=== PATIENT | female | born 1980 | race African-American/Black ===

== ENCOUNTER 2017-03-25 20:51 | Observation (INO) | payer OTHER ==
[2017-03-25 20:00] VITALS: BP 149/92; PULSE 68; PULSE 70; RESP 20; TEMP 97; O2SAT 100
[~2017-03-25 20:51] MED LIST: IBUP-232 PO
[2017-03-25] MEDS ORDERED: SODIUM CHLORIDE 0.9% FLUSH 10 ML FLUSH IV FLUSH PRN (23:00)
[2017-03-25] MEDS ORDERED: ONDANSETRON HCL 4 MG/2 ML VIAL IV PUSH PRN (23:00)
[2017-03-25] MEDS ORDERED: NITROGLYCERIN 0.4 MG SL 25 TABS/BTL SL PRN (23:00)
[2017-03-25 23:05] VITALS: O2SAT 99
[2017-03-25 23:51] LABS: TROPONIN I LESS THAN 0.02 NG/ML (0.02-0.05)
[2017-03-26] VITALS: BP 122/81; PULSE 74; RESP 18; TEMP 96.5; O2SAT 99
[2017-03-26 04:00] VITALS: BP 141/87; PULSE 54; RESP 18; TEMP 97.1; O2SAT 99
[2017-03-26 06:40] LABS: AUTOMATED NEUTROPHIL # 2.5 TH/MM3 (1.8-7.7); BASOPHIL # 0.1 TH/MM3 (0-0.2); BASOPHIL % 1.9 % (0.0-2.0); EOSINOPHIL # 0.3 TH/MM3 (0-0.4); EOSINOPHIL % 5.3 % (0.0-4.0); HEMOGLOBIN 9.9 GM/DL (11.6-15.3); LYMPH % 39.9 % (9.0-44.0); LYMPHOCYTE # 2.1 TH/MM3 (1.0-4.8); MEAN CELL VOLUME 71.8 FL (80.0-100.0); MEAN CORPUSCULAR HEMOGLOBIN 22.2 PG (27.0-34.0); MEAN PLATELET VOLUME 9.6 FL (7.0-11.0); MONO % 6.2 % (0.0-8.0); MONOCYTE # 0.3 TH/MM3 (0-0.9); NEUT % 46.7 % (16.0-70.0); PLATELET COUNT 291 TH/MM3 (150-450); RED BLOOD COUNT 4.45 MIL/MM3 (4.00-5.30); RED CELL DISTRIBUTION WIDTH 19.6 % (11.6-17.2); WHITE BLOOD COUNT 5.3 TH/MM3 (4.0-11.0)
[2017-03-26 06:57] LABS: BICARBONATE 26.1 MEQ/L (21.0-32.0); CALCIUM 8.6 MG/DL (8.5-10.1)
[2017-03-26 07:01] LABS: CREATININE 0.62 MG/DL (0.50-1.00)
[2017-03-26 07:28] LABS: OVALOCYTES 1+ (NORMAL)
[2017-03-26 07:29] LABS: ROULEAUX PRESENT (NORMAL)
[2017-03-26 08:00] VITALS: BP 146/100; PULSE 73; RESP 16; TEMP 97.6; O2SAT 100
[2017-03-26 08:19] VITALS: PULSE 73
--- NOTE | 2017-03-26 08:23 | HHI.HP ---
[facility] [place] [facility] Primary Care Physician No Primary Care Physician Admission Diagnosis Chest pain Diagnoses: (1) Atypical chest pain Chief Complaint: Chest pain Travel History International Travel<30 Days: No Contact w/Intl Traveler <30 Da: No Traveled to Known Affected Are: No History of Present Illness This is a pleasant 36-year-old female patient with a known medical history of iron deficiency anemia and anxiety who presented to the ED with complaints of chest pain. Patient states that over the past several months since September of last year she has been having complaints of daily chest pain. Patient states that the pain usually occurs in her right axilla and right arm and radiates to the left side of her chest and upper neck and jaw. She characterizes the pain as squeezing and sharp in nature, happens roughly every day, last a few minutes to an hour, states that rest usually relieves the pain. Denies any aggravating factors. Patient does admit to associated nausea, diaphoresis and shortness of breath with the pain, rates the pain a seven out of ten at its worst. Patient does a patient denies ever having this pain before the last several months. Does admit to history of anxiety for which she was on Xanax but does not take anymore because it made her too lethargic. Patient does admit to daily marijuana use for her anxiety. Patient was given nitroglycerin sublingual 1 which relieved the pain in the ED. Patient does admit to any significant family medical history, her father had an AL at the age of forty-two and her paternal aunt also had a heart attack at the age of thirty-seven. Does admit to history of iron deficiency anemia, does not take iron supplements at home. His any recent illness including fever, chills abdominal pain, nausea and vomiting. Review of Systems Constitutional: DENIES: Fever, Chills Endocrine: DENIES: Abnorml menstrual pattern Eyes: DENIES: Blurred vision, Diplopia Respiratory: COMPLAINS OF: Shortness of breath, DENIES: Cough, Sputum production Cardiovascular: COMPLAINS OF: Chest pain, DENIES: Palpitations Gastrointestinal: COMPLAINS OF: Nausea, DENIES: Abdominal pain, Black stools, Bloody stools, Constipation, Diarrhea, Vomiting Musculoskeletal: DENIES: Joint pain Integumentary: DENIES: Abnormal pigmentation Hematologic/lymphatic: DENIES: Bruising Immunologic/allergic: DENIES: Eczema Neurologic: DENIES: Abnormal gait Psychiatric: COMPLAINS OF: Anxiety Except as stated in HPI: all other systems reviewed are Neg Past Family Social History Past Medical History Iron deficiency anemia Anxiety Chronic back pain Past Surgical History Reported Medications Denies any home medications. Allergies: Coded Allergies: morphine (Verified Allergy, Severe, Itching, 03/25/17) Active Ordered Medications Current Medications Medications (Trade) Dose Ordered Sig/Jovita Route Start Time Stop Time Status Last Admin (NS Flush) 2 ml UNSCH PRN IV FLUSH 03/25/17 23:00 (NS Flush) 2 ml BID IV FLUSH 03/26/17 09:00 03/26/17 08:48 (Zofran Inj) 4 mg Q6H PRN IV PUSH 03/25/17 23:00 (Nitrostat Sl) 0.4 mg Q5M PRN SL 03/25/17 23:00 Family History Father had an AL at the age of forty-two. Paternal aunt had an AL at the age of thirty-seven. Social History Admits to drinking socially. Denies any tobacco use. Does admit to daily marijuana use. Denies any cocaine use. Physical Exam Vital Signs Vital Signs Date Time Temp Pulse Resp B/P (MAP) Pulse Ox O2 Delivery O2 Flow Rate FiO2 03/26/17 04:00 97.1 54 18 141/87 (105) 99 03/26/17 00:00 96.5 74 18 122/81 (95) 99 03/25/17 23:05 99 21 03/25/17 20:00 68 03/25/17 20:00 97.0 70 20 149/92 (111) 100 Physical Exam GENERAL: Well-nourished, well-developed patient in NAD. SKIN: Warm and dry. No rash. HEAD: Normocephalic. Atraumatic. EYES: Pupils equal and round. No scleral icterus. No injection or drainage. ENT: No nasal bleeding or discharge. Mucous membranes pink and moist. NECK: Supple. Trachea midline. CARDIOVASCULAR: Regular rate and rhythm. S1, S2 noted. No murmur appreciated. No reproducible chest pain to palpation. RESPIRATORY: No accessory muscle use. Clear to auscultation. Breath sounds equal bilaterally. GASTROINTESTINAL: Abdomen soft, non-tender, nondistended. Normoactive bowel sounds x4. MUSCULOSKELETAL: No obvious deformities. Extremities without clubbing, cyanosis , or edema. NEUROLOGICAL: Awake and alert. No obvious cranial nerve deficits. Motor grossly within normal limits. 5/5 muscle strength in bilateral upper and lower extremities. Normal speech. PSYCHIATRIC: Appropriate mood and affect; insight and judgment normal. Laboratory Laboratory Tests Test 03/25/17 23:10 03/26/17 06:10 Total Creatine Kinase 104 Creatine Kinase MB LESS THAN 0.5 Troponin I LESS THAN 0.02 White Blood Count 5.3 Red Blood Count 4.45 Hemoglobin 9.9 Hematocrit 32.0 Mean Corpuscular Volume 71.8 Mean Corpuscular Hemoglobin 22.2 Mean Corpuscular Hemoglobin Concent 31.0 Red Cell Distribution Width 19.6 Platelet Count 291 Mean Platelet Volume 9.6 Neutrophils (%) (Auto) 46.7 Lymphocytes (%) (Auto) 39.9 Monocytes (%) (Auto) 6.2 Eosinophils (%) (Auto) 5.3 Basophils (%) (Auto) 1.9 Neutrophils # (Auto) 2.5 Lymphocytes # (Auto) 2.1 Monocytes # (Auto) 0.3 Eosinophils # (Auto) 0.3 Basophils # (Auto) 0.1 CBC Comment AUTO DIFF Differential Comment AUTO DIFF CONFIRMED Platelet Estimate NORMAL Platelet Morphology Comment NORMAL Ovalocytes 1+ Rouleau PRESENT Blood Urea Nitrogen 10 Creatinine 0.62 Random Glucose 90 Calcium Level 8.6 Sodium Level 138 Potassium Level 3.4 Chloride Level 106 Carbon Dioxide Level 26.1 Anion Gap 6 Estimat Glomerular Filtration Rate 132 Result Diagram: 03/26/17 0610 03/26/17 06 Septic Shock Reassessment Septic shock perfusion: reassessment completed Caprini VTE Risk Assessment Caprini VTE Risk Assessment: No/Low Risk (score <= 1) Caprini Risk Assessment Model Point Value = 1 Point Value = 2 Point Value = 3 Point Value = 5 Age 41-60 Minor surgery BMI > 25 kg/m2 Swollen legs Varicose veins or History of unexplained or recurrent spontaneous Oral contraceptives or hormone replacement Sepsis (< 1 month) Serious lung disease, including pneumonia (< 1 month) Abnormal pulmonary function Acute myocardial infarction Congestive heart failure (< 1 month) History of inflammatory bowel disease Medical patient at bed rest Age 61-74 Arthroscopic surgery Major open surgery (> 45 min) Laparoscopic surgery (> 45 min) Malignancy Confined to bed (> 72 hours) Immobilizing plaster cast Central venous access Age >= 75 History of VTE Family history of VTE Factor V Leiden Prothrombin [id number] Lupus anticoagulant Anticardiolipin antibodies Elevated serum homocysteine Heparin-induced thrombocytopenia Other congenital or acquired thrombophilia Stroke (< 1 month) Elective arthroplasty Hip, pelvis, or leg fracture Acute spinal cord injury (< 1 month) Prophylaxis Regimen Total Risk Factor Score Risk Level Prophylaxis Regimen 0-1 Low Early ambulation 2 Moderate Order ONE of the following: *Sequential Compression Device (SCD) *Heparin 5000 units SQ BID 3-4 Higher Order ONE of the following medications: *Heparin 5000 units SQ TID *Enoxaparin/Lovenox 40 mg SQ daily (WT < 150 kg, CrCl > 30 mL/min) *Enoxaparin/Lovenox 30 mg SQ daily (WT < 150 kg, CrCl > 10-29 mL/min) *Enoxaparin/Lovenox 30 mg SQ BID (WT < 150 kg, CrCl > 30 mL/min) AND/OR *Sequential Compression Device (SCD) 5 or more Highest Order ONE of the following medications: *Heparin 5000 units SQ TID (Preferred with Epidurals) *Enoxaparin/Lovenox 40 mg SQ daily (WT < 150 kg, CrCl > 30 mL/min) *Enoxaparin/Lovenox 30 mg SQ daily (WT < 150 kg, CrCl > 10-29 mL/min) *Enoxaparin/Lovenox 30 mg SQ BID (WT < 150 kg, CrCl > 30 mL/min) AND *Sequential Compression Device (SCD) Assessment and Plan Problem List: (1) Atypical chest pain ICD Code: R07.89 - Other chest pain Plan: Patient has been admitted to the chest pain center for observation. Serial EKGs and serial troponins have been ordered for ruling out ACS purposes. Troponin 2 negative. Awaiting third enzyme, follow. EKG reviewed showing normal sinus rhythm with controlled heart rate, no ST changes to indicate any ischemia. Chest pain is currently resolved. Chest x-ray reviewed showing no acute disease. Nitroglycerin available for chest pain when necessary. Due to the patient's significant family medical history of AL, patient will undergo a cardiac treadmill stress test to further rule out any ischemia. Patient is stable at this time and agreeable to the plan. (2) Hypokalemia ICD Code: E87.6 - Hypokalemia Plan: Mild hypokalemia, 3.4. Replaced. (3) Iron deficiency anemia ICD Code: D50.9 - Iron deficiency anemia, unspecified Plan: CBC showing iron deficiency anemia. Iron studies and ferritin ordered, pending. Follow. Assessment and Plan Patient underwent treadmill cardiac stress test, images reviewed by on-call char filter operator, Dr. Pierce, showing no ischemia although patient is intermediate risk secondary to chest pain. A nuclear stress test has been ordered. Patient has been updated about results and further treatment plan. Will await nuclear imaging results. Further hospitalization to be determined. Patient underwent a cardiac nuclear stress test. Results were reviewed showing EF 64% with intact wall motion and thickening without hypokinetic or dyskinetic segments. Unremarkable myocardial perfusion scan. Patient updated about results. Encouraged to follow up with PCP for NIYAH and given iron and vitamin C prescriptions. Likely symptoms are related to her disease and noncompliance with iron supplementation. Patient is agreeable to the plan. Sona Patel Mar 26, 2017 08:23
[2017-03-26 08:35] LABS: TROPONIN I LESS THAN 0.02 NG/ML (0.02-0.05)
[2017-03-26] MEDS ORDERED: SODIUM CHLORIDE 0.9% FLUSH 10 ML FLUSH IV FLUSH SCH (09:00)
[2017-03-26] MEDS ORDERED: POTASSIUM CHLORIDE 10 MEQ CONTROLLED RELEASE TAB PO ONE (09:15)
[2017-03-26 10:14] LABS: TROPONIN I LESS THAN 0.02 NG/ML (0.02-0.05)
[2017-03-26 11:08] LABS: % SATURATION IRON PROFILE 9.9 % (20-50); CHOLESTEROL 184 MG/DL (120-200); IRON (FE) 44 MCG/DL (50-170); TOTAL IRON BINDING CAPACITY 444 MCG/DL (250-450)
[2017-03-26 11:11] LABS: CHOLESTEROL/ HDL RATIO 2.33 RATIO; FERRITIN 5 NG/ML (8-252); HDL CHOLESTEROL 78.8 MG/DL (40.0-60.0); LDL CHOLESTEROL 85 MG/DL (0-99); TRIGLYCERIDES 100 MG/DL (42-150)
[2017-03-26 12:00] VITALS: BP 157/90; PULSE 93; RESP 15; TEMP 97.6; O2SAT 99
--- NOTE | 2017-03-26 12:00 | TR ---
Date Performed: 03/26/2017 Time Performed: 10:06:00 DOCTOR: Elaine Pierce DRUG LIST: CLINICAL HISTORY: REASON FOR TEST: Chest pain REASON FOR ENDING: OBSERVATION: CONCLUSION: Emmanuel protocol performed test stopped secondary to leg fatigue and exhaustion. Patie nt c/o some mild chest discomfort in the middle of test, subsided at rest. Good BP response. Recovery quick and unremarkable.Maximum KU=406 Target HR Achieved=96.0% Maximum YL=664/78 METs Achieved=10.1 COMMENTS:
--- NOTE | 2017-03-26 12:57 | EKG ---
Date Performed: 03/26/2017 Time Performed: 09:41:10 PTAGE: 36 years EKG: Sinus rhythm NORMAL ECG Since PREVIOUS TRACING , no significant change noted PREVIOUS TRACIN03/26/2017 08.02 DOCTOR: Elaine Pierce Interpretating Date/Time 03/26/2017 12:55:06
[2017-03-26] MEDS ORDERED: ACETAMINOPHEN 325 MG TAB PO PRN (16:45)
[2017-03-26] MEDS ORDERED: FERROUS SULFATE 325 MG (65 MG ELEMENTAL IRON) TAB PO SCH (17:00)
[2017-03-26] MEDS ORDERED: ASCORBIC ACID 500 MG TAB PO SCH (17:00)
--- NOTE | 2017-03-26 17:15 | RADRPT ---
EXAM DATE/TIME: 03/26/2017 15:30 [facility] COMPARISON: No previous studies available for comparison. INDICATIONS : Right chest pain radiating to the left chest, upper neck and jaw with diaphoresis, nausea and dyspnea . Angina. DOSE: 27.3 mCi Tc99m Myoview at stress. 8.7 mCi Tc99m Myoview at rest. 0.4 mg Lexiscan STRESS SYMPTOMS: Dyspnea, hot feeling, headache and chest pain. EJECTION FRACTION: 64% MEDICAL HISTORY : Hypertension. SURGICAL HISTORY : section. ENCOUNTER: Initial ACUITY: 1 yr PAIN SCALE: 6/10 LOCATION: Bilateral chest TECHNIQUE: The patient underwent pharmacologic stress with infusion of prescribed dose. Continuous ECG tracing was monitored during stress. Gated SPECT imaging was performed after stress and conventional SPECT i maging was performed at rest. The examination was performed on a SPECT/CT scanner, both attenuation and non-corrected datasets were reviewed. FINDINGS: DISTRIBUTION: The maximum perfused segment at stress is in the anterolateral wall. PERFUSION STUDY: The pattern of perfusion at stress is within normal limits. GATED STUDY: There is intact wall motion and thickening without hypokinetic or dyskinetic segments. CONCLUSION: 1. Unremarkable myocardial perfusion scan. RISK CATEGORY: Low (<1% Annual Mortality Rate) Jerry Vang MD on March 26, 2017 at 17:12 Board Certified Radiologist. This report was verified electronically.
--- NOTE | 2017-03-26 17:20 | HHI.DCPOC ---
Discharge Care Plan Diagnosis: (1) Iron deficiency anemia (2) Hypokalemia (3) Atypical chest pain Goals to Promote Your Health * To prevent worsening of your condition and complications * To maintain your health at the optimal level Directions to Meet Your Goals Take your medications as prescribed Follow your dietary instruction Follow activity as directed Keep your appointments as scheduled Take your immunizations and boosters as scheduled If your symptoms worsen call your PCP, if no PCP go to Urgent Care Center or Emergency Room Smoking is Dangerous to Your Health. Avoid second hand smoke Call the 24-hour hour crisis hotline for domestic abuse at Sona Patel Mar 26, 2017 17:20
[2017-03-26] MEDS ORDERED: ASCO500 PO (17:23)
[2017-03-26] MEDS ORDERED: FERR325T20 PO (17:23)
--- NOTE | 2017-03-26 17:42 | EKG ---
Date Performed: 03/25/2017 Time Performed: 23:09:12 PTAGE: 36 years EKG: Sinus rhythm POSSIBLE RIGHT VENTRICULAR CONDUCTION DELAY BORDERLINE ECG Since PREVIOUS TRACING , no significant change noted DOCTOR: Elaine Pierce Interpretating Date/Time 03/26/2017 17:40:20
--- NOTE | 2017-03-26 17:43 | EKG ---
Date Performed: 03/26/2017 Time Performed: 08:02:24 PTAGE: 36 years EKG: Sinus rhythm NORMAL ECG Since PREVIOUS TRACING , no significant change noted PREVIOUS TRACIN03/25/2017 23.09 DOCTOR: Elaine Pierce Interpretating Date/Time 03/26/2017 17:41:06
--- NOTE | 2017-03-26 17:44 | TR ---
Date Performed: 03/26/2017 Time Performed: 15:54:44 DOCTOR: Elaine Pierce DRUG LIST: CLINICAL HISTORY: REASON FOR TEST: Chest pain REASON FOR ENDING: OBSERVATION: CONCLUSION: Lexiscan stress test was performed under standard four minute protocol. Radionuclid e was injected one minute prior to ending the test. No electrocardiographic abormalities were present to suggest ischemia. Nuclear imaging and interpretation are pending. COMMENTS:
[2017-03-26 18:03] VITALS: RESP 18
[2017-03-26] MEDS ORDERED: REGADENOSON INJ 0.4 MG/5 ML SYR IV ONE (20:53)
== END 2017-03-26 18:37 | disposition home or self-care (01) ==
LOC: PHEDDLT 20:51 → PH3A 20:52
PROVIDERS: ADMIT Hospitalist; ATTEND Hospitalist
DX: R07.89 Other chest pain (principal); R06.02 Shortness of breath; R11.0 Nausea; R61 Generalized hyperhidrosis; E87.6 Hypokalemia; D50.9 Iron deficiency anemia, unspecified; I20.9 Angina pectoris, unspecified; R51 Headache; F41.9 Anxiety disorder, unspecified; M54.9 Dorsalgia, unspecified; G89.29 Other chronic pain; F12.90 Cannabis use, unspecified, uncomplicated; Z82.49 Family history of ischemic heart disease and other diseases of the circulatory system
CPT/HCPCS: 71045; 78452; 80048; 80053; 80061; 82550; 82552; 82728; 83540; 83550; 84484; 84702; 85025; 85610; 85730; 93005; 93017; 99285; A9502; G0378; J2785